=== PATIENT | female | born 1995 | race Caucasian/White ===

== ENCOUNTER 2017-06-12 15:36 | Emergency (ER) | payer SELFPAY ==
[2017-06-12 16:42] LABS: URINE HCG POC HCG NEGATIVE (Negative)
== END 2017-06-12 17:37 | disposition home or self-care (01) ==
LOC: ER 15:36
DX: M54.5 Low back pain (principal); W01.0XXA Fall on same level from slipping, tripping and stumbling without subsequent striking against object, initial encounter; Y93.01 Activity, walking, marching and hiking; Y92.89 Other specified places as the place of occurrence of the external cause; Y99.8 Other external cause status
CPT/HCPCS: 72100; 81025; 99284